=== PATIENT | female | born 1930 | race Caucasian/White ===

== ENCOUNTER 2016-12-12 13:58 | Observation (INO) | payer MEDICARE ==
[2016-12-12 14:29] LABS: Hematocrit 32 % (35-47); Hemoglobin 10.4 g/dl (12.0-16.0); Mean Corpuscular HGB Conc 32 g/dl (31-36); Mean Corpuscular Hemoglobin 30 pg (27-31); Mean Corpuscular Volume 93 fL (80-97); Mean Platelet Volume 8 um3 (7.4-10.4); Red Blood Count 3.44 10^6/ul (4.0-5.4); Red Cell Distribution Width 14 % (10.5-15); White Blood Count 8.2 10^3/ul (3.5-10.8)
[2016-12-12 14:44] LABS: Albumin 3.6 g/dL (3.2-5.2); BUN/Creatinine Ratio 20.6 (8-20); Calcium 10.3 mg/dL (8.6-10.3); EGFR African American 51.7 (>60); EGFR Non-African American 40.2 (>60); Globulin 3.2 g/dL (2-4); Potassium 4.1 mmol/L (3.5-5.0); Total Bilirubin 0.3 mg/dL (0.2-1.0); Total Protein 6.8 g/dL (6.4-8.9)
[2016-12-12 14:46] LABS: Troponin I 0.01 ng/mL (<0.04)
--- NOTE | 2016-12-12 15:04 | RAD ---
INDICATION: Weakness. COMPARISON: October 26, 2013 TECHNIQUE: Noncontrast axial source images were acquired from the skull base to the vertex. FINDINGS: Ventricles/sulci: There is mild cortical atrophy. Brain parenchyma: There are no acute parenchymal findings. There is encephalomalacia in the left frontal lobe at the operative site appearing unchanged. There is chronic marked thoracic ischemic change. Intracranial hemorrhage:None. Extra-axial spaces: There are no abnormal extra axial fluid collections or evidence of extra-axial mass. Calvarium: Left frontal craniotomy defect. Scalp: There is no evidence of scalp or extracalvarial soft tissue abnormality. Paranasal sinuses/mastoid: The paranasal sinuses and mastoid air cells are clear. Other: None. IMPRESSION: LEFT FRONTAL CRANIOTOMY WITH ADJACENT LEFT FRONTAL ENCEPHALOMALACIA. UNDERLYING CHRONIC MICROVASCULAR ISCHEMIC CHANGE. NO ACUTE FINDINGS.
[2016-12-12] MEDS ORDERED: Iodixanol* (CONTRAST) 320 MG/ML 100 ML SDV IV ONE (15:26)
--- NOTE | 2016-12-12 15:35 | ED ---
Ryan Winter Adam, scribed for Yash Bhagat MD on 12/12/16 at 1414 . Neurological HPI - HPI Summary HPI Summary: Pt is an 86 year old female presenting with slurred speech and right side weakness. She was sitting and watching TV at 10:00 this morning when she suddenly became unable to pronounce words. Her family states that her speech was coming out slurred and garbled. They also report a period of several seconds where she appeared to be conscious but was unresponsive. They also noticed right-sided facial droop and right-sided weakness. These symptoms lasted at least 3 hours and are resolved now. Pt currently has no complaints. PMHx of HTN, HLD, brain tumor, and possible CVA/TIA in 2013. Former tobacco user. - History of Current Complaint Chief Complaint: EDWeakness Stated Complaint: POSSIBLE TIA Hx Obtained From: Patient Onset/Duration: Sudden Onset, Started hours ago, Resolved Timing: Constant Onset Severity: Moderate Current Severity: None Neurological Deficit Location: Facial, RUE, RLE Pain Intensity: 0 Character: Motor Weakness, Impaired Speech, Responsiveness Aggravating: Unknown Alleviating: Spontanious Resolution Associated Signs and Symptoms: Positive: Weakness, Impaired Speech - Allergy/Home Medications Allergies/Adverse Reactions: Allergies Allergy/AdvReac Type Severity Reaction Status Date / Time Penicillins Allergy Intermediate Hives Verified 06/08/15 13:35 Sulfa Antibiotics Allergy Intermediate Hives Verified 06/08/15 13:35 Carbamazepine [From Tegretol] Allergy Unknown Verified 06/08/15 13:35 Reaction Details Phenytoin [From Dilantin] Allergy Unknown Verified 06/08/15 13:35 Reaction Details Tramadol [From Ultram] Allergy Unknown Verified 06/08/15 13:35 Reaction Details Home Medications: Home Medications Acetaminophen TAB* [Tylenol TAB*] 650 mg PO Q4H PRN 12/12/16 [History Confirmed 12/12/16] Aluminum & Magnesium Hydroxide [Mag-Al] 15 ml PO Q4HR PRN 12/12/16 [History Confirmed 12/12/16] Bismuth Subsalicylate* [Peptic Relief*] 15 ml PO Q4HR PRN 12/12/16 [History Confirmed 12/12/16] Ferrous Sulfate TAB* 325 mg PO BID WITH MEALS 12/12/16 [History Confirmed ] Ketoconazole 2 % CREAM (NF) [Nizoral 2% CREAM (NF)] 1 applic TOPICAL BID PRN 10/18 [History Confirmed 12/12/16] Levetiracetam 250 mg PO BID 12/12/16 [History Confirmed 12/12/16] LoraTADine TAB(NF) [Claritin TAB(NF)] 10 mg PO DAILY PRN 12/12/16 [History Confirmed 12/12/16] Magnesium Hydroxide LIQ* [Milk of Magnesia LIQ*] 30 ml PO DAILY PRN 12/12/16 [ History Confirmed 12/12/16] Polyvinyl Alcohol-Povidone (Op [Refresh] 1 elvin BOTH EYES DAILY 12/12/16 [ History Confirmed 12/12/16] Simvastatin TAB(NF) [Zocor(NF)] 20 mg PO BEDTIME 12/12/16 [History Confirmed 10/18] Sucralfate TAB* [Carafate*] 1 gm PO BID 12/12/16 [History Confirmed 12/12/16] Venlafaxine EXT RELEASE CAP* [Effexor Xr CAP*] 37.5 mg PO DAILY 12/12/16 [ History Confirmed 12/12/16] guaiFENesin LIQ* [Robitussin*] 10 ml PO Q4H PRN 12/12/16 [History Confirmed 10/18] PMH/Surg Hx/FS Hx/Imm Hx Endocrine/Hematology History: Reports: Hx Anticoagulant Therapy - ecotrin 324mg daily, Hx Thyroid Disease - hyper Denies: Hx Diabetes Cardiovascular History: Reports: Hx Aneurysm - aortic aneurysm, Hx Hypercholesterolemia, Hx Hypertension, Other Cardiovascular Problems/Disorders - OCCLUSIVE CAROTID Denies: Hx Pacemaker/ICD Respiratory History: Denies: Hx Asthma, Hx Chronic Obstructive Pulmonary Disease (COPD), Other Respiratory Problems/Disorders - denies GI History: Reports: Hx Gastroesophageal Reflux Disease, Hx Ulcer History: Denies: Hx Renal Disease Musculoskeletal History: Reports: Hx Arthritis Sensory History: Reports: Hx Contacts or Glasses Denies: Hx Hearing Aid Opthamlomology History: Reports: Hx Contacts or Glasses Neurological History: Denies: Hx Dementia, Hx Seizures Comment Only: Other Neuro Impairments/Disorders - BRAIN TUMOR Psychiatric History: Reports: Hx Anxiety, Hx Depression Denies: Hx Panic Disorder, Hx Substance Abuse - Surgical History Surgery Procedure, Year, and Place: MENINGICELE 2000 benign AND AAA 1991 ( meningioma and AAA surgeries cleared by dr brambila 02/19/13) Hx Anesthesia Reactions: No Infectious Disease History: No Infectious Disease History: Reports: Hx Shingles Denies: Hx Hepatitis, Hx Human Immunodeficiency Virus (HIV), Traveled Outside the [place] in Last 30 Days - Social History Occupation: Retired Lives: Alone Alcohol Use: Occasionally Hx Substance Use: No Substance Use Type: Reports: None Hx Tobacco Use: Yes Smoking Status (MU): Former Smoker Review of Systems Constitutional: Negative Negative: Fever Neurological: Other - Right side facial droop Positive: Weakness - Right side, Slurred Speech All Other Systems Reviewed And Are Negative: Yes Physical Exam - Summary Physical Exam Summary: VITAL SIGNS: Reviewed. GENERAL: Patient is a well developed and nourished female who is lying comfortable in the stretcher. Patient is not in any acute respiratory distress. HEAD AND FACE: No signs of trauma. No ecchymosis, hematomas or skull depressions. No sinus tenderness. EYES: PERRLA, EOMI x 2, No injected conjunctiva, no nystagmus. No photophobia. EARS: Hearing grossly intact. Ear canals and tympanic membranes are within normal limits. MOUTH: Oropharynx within normal limits. NECK: Supple, trachea is midline, no adenopathy, no JVD, no carotid bruit, no c- spine tenderness, neck with full ROM. No meningeal signs, no Kernig's or brudzinskis signs. CHEST: Symmetric, no tenderness at palpation LUNGS: Clear to auscultation bilaterally. No wheezing or crackles. CVS: Regular rate and rhythm, S1 and S2 present, no murmurs or gallops appreciated. ABDOMEN: Soft, non-tender. No signs of distention. No rebound no guarding, and no masses palpated. Bowel sounds are normal. EXTREMITIES: FROM in all major joints, no edema, no cyanosis or clubbing. NEURO: Alert and oriented x 3. No acute neurological deficits. Speech is normal and follows commands. NIH score is 0 SKIN: Dry and warm Triage Information Reviewed: Yes Vital Signs On Initial Exam: Initial Vitals Temp Pulse Resp BP Pulse Ox 98.7 F 73 14 127/66 96 12/12/16 14:06 12/12/16 14:06 12/12/16 14:06 12/12/16 14:06 12/12/16 14:06 Vital Signs Reviewed: Yes - Luke Coma Scale Coma Scale Total: 15 Diagnostics - Vital Signs Vital Signs Temp Pulse Resp BP Pulse Ox 12/12/16 14:06 98.7 F 73 14 127/66 96 - Laboratory Lab Results: Lab Results 12/12/16 12/12/16 12/12/16 Range/Units 14:12 14:12 14:12 WBC 8.2 (3.5-10.8) 10^3/ul RBC 3.44 L (4.0-5.4) 10^6/ul Hgb 10.4 L (12.0-16.0) g/dl Hct 32 L (35-47) % MCV 93 (80-97) fL MCH 30 (27-31) pg MCHC 32 (31-36) g/dl RDW 14 (10.5-15) % Plt Count 266 (150-450) 10^3/ul MPV 8 (7.4-10.4) um3 Neut % (Auto) 71.8 (38-83) % Lymph % (Auto) 14.2 L (25-47) % Ceiba % (Auto) 8.2 (1-9) % Eos % (Auto) 5.3 (0-6) % Baso % (Auto) 0.5 (0-2) % Absolute Neuts (auto) 5.9 (1.5-7.7) 10^3/ul Absolute Lymphs (auto) 1.2 (1.0-4.8) 10^3/ul Absolute Monos (auto) 0.7 (0-0.8) 10^3/ul Absolute Eos (auto) 0.4 (0-0.6) 10^3/ul Absolute Basos (auto) 0 (0-0.2) 10^3/ul Absolute Nucleated RBC 0 10^3/ul Nucleated RBC % 0 INR (Anticoag Therapy) 0.94 (0.89-1.11) Sodium 138 (133-145) mmol/L Potassium 4.1 (3.5-5.0) mmol/L Chloride 107 (101-111) mmol/L Carbon Dioxide 27 (22-32) mmol/L Anion Gap 4 (2-11) mmol/L BUN 26 H (6-24) mg/dL Creatinine 1.26 H (0.51-0.95) mg/dL Est GFR ( Amer) 51.7 (>60) Est GFR (Non-Af Amer) 40.2 (>60) BUN/Creatinine Ratio 20.6 H (8-20) Glucose 139 H (70-100) mg/dL Lactic Acid (0.5-2.0) mmol/L Calcium 10.3 (8.6-10.3) mg/dL Total Bilirubin 0.30 (0.2-1.0) mg/dL AST 26 (13-39) U/L ALT 17 (7-52) U/L Alkaline Phosphatase 101 (34-104) U/L Troponin I 0.01 (<0.04) ng/mL Total Protein 6.8 (6.4-8.9) g/dL Albumin 3.6 (3.2-5.2) g/dL Globulin 3.2 (2-4) g/dL Albumin/Globulin Ratio 1.1 (1-3) 12/12/16 Range/Units 14:12 WBC (3.5-10.8) 10^3/ul RBC (4.0-5.4) 10^6/ul Hgb (12.0-16.0) g/dl Hct (35-47) % MCV (80-97) fL MCH (27-31) pg MCHC (31-36) g/dl RDW (10.5-15) % Plt Count (150-450) 10^3/ul MPV (7.4-10.4) um3 Neut % (Auto) (38-83) % Lymph % (Auto) (25-47) % Ceiba % (Auto) (1-9) % Eos % (Auto) (0-6) % Baso % (Auto) (0-2) % Absolute Neuts (auto) (1.5-7.7) 10^3/ul Absolute Lymphs (auto) (1.0-4.8) 10^3/ul Absolute Monos (auto) (0-0.8) 10^3/ul Absolute Eos (auto) (0-0.6) 10^3/ul Absolute Basos (auto) (0-0.2) 10^3/ul Absolute Nucleated RBC 10^3/ul Nucleated RBC % INR (Anticoag Therapy) (0.89-1.11) Sodium (133-145) mmol/L Potassium (3.5-5.0) mmol/L Chloride (101-111) mmol/L Carbon Dioxide (22-32) mmol/L Anion Gap (2-11) mmol/L BUN (6-24) mg/dL Creatinine (0.51-0.95) mg/dL Est GFR ( Amer) (>60) Est GFR (Non-Af Amer) (>60) BUN/Creatinine Ratio (8-20) Glucose (70-100) mg/dL Lactic Acid 1.3 (0.5-2.0) mmol/L Calcium (8.6-10.3) mg/dL Total Bilirubin (0.2-1.0) mg/dL AST (13-39) U/L ALT (7-52) U/L Alkaline Phosphatase (34-104) U/L Troponin I (<0.04) ng/mL Total Protein (6.4-8.9) g/dL Albumin (3.2-5.2) g/dL Globulin (2-4) g/dL Albumin/Globulin Ratio (1-3) Result Diagrams: 12/12/16 14:12 12/12/16 14:12 Lab Statement: Any lab studies that have been ordered have been reviewed, and results considered in the medical decision making process. - CT BRAIN CT Interpretation Completed By: Radiologist - IMPRESSION: LEFT FRONTAL CRANIOTOMY WITH ADJACENT LEFT FRONTAL ENCEPHALOMALACIA. UNDERLYING CHRONIC MICROVASCULAR ISCHEMIC CHANGE. NO ACUTE FINDINGS. - EKG 14:14 Cardiac Rate: NL - 74 BPM EKG Rhythm: Sinus Rhythm - Normal EKG Interpretation: No acute ischemia. No ST elevations. - Additional Comments Diagnostic Additional Comments: Troponin I - 0.01 Course/Dx - Course Assessment/Plan: Pt is an 86 year old female presenting with slurred speech and right side weakness. She was sitting and watching TV at 10:00 this morning when she suddenly became unable to pronounce words. Her family states that her speech was coming out slurred and garbled. They also report a period of several seconds where she appeared to be conscious but was unresponsive. They also noticed right-sided facial droop and right-sided weakness. These symptoms lasted at least 3 hours and are resolved now. Pt currently has no complaints. PMHx of HTN, HLD, brain tumor, and possible CVA/TIA in 2013. Labs wnl except for slight anemia. Slight increase in BUN and creatinine. Head Ct impression shows a left frontal craniotomy with encephalomalacia, chronic microvascular disease ischemic changes. I discussed the case with Dr. Leon and he recommends to order a CTA head and neck admission to the hospitalist and he will consult for the patient. I discuss my physical exam, findings and test results with Dr. Martinez from the hospitalist services and she agrees to admit patient to his services. Patient is hemodynamically stable alert and oriented x 3. - Differential Dx Differential Diagnoses Neuro: Positive: Cerebrovascular Accident, Dysrhythmia, Headache, Hemorrhage, Medication Reaction, Seizure Disorder, Transient Ischemic Attack, Vasovagal Reaction - Diagnoses Provider Diagnoses: TIA vs CVA Discharge - Discharge Plan Condition: Stable Disposition: ADMITTED TO [facility] The documentation as recorded by the Ryan little Adam accurately reflects the service I personally performed and the decisions made by me, Yash Bhagat MD.
--- NOTE | 2016-12-12 16:10 | RAD ---
Indication: Slurred speech. Hypertension. Comparison: October 26, 2013 Technique: Upright AP 1525 hours Report: Elevated lung volumes. Minimal transverse oriented linear opacity at the RIGHT midlung zone unchanged from the 2013 exam consistent with pleural parenchymal scarring or trace fluid in the RIGHT minor fissure. The lungs and pleural spaces are otherwise clear. Upper normal heart size. Unremarkable central pulmonary vasculature. Tortuous thoracic aorta without suspicious interval change accounting for mild rightward rotation. IMPRESSION: Stigmata of chronic obstructive pulmonary disease and emphysema. No acute cardiopulmonary process evident.
--- NOTE | 2016-12-12 16:16 | RAD ---
HISTORY: Right-sided weakness, slurred speech COMPARISONS: December 12, [address], MRI dated February 19, 2013 TECHNIQUE: Multiple contiguous axial CT scans were obtained of the head and neck After the administration of nonionic intravenous contrast timed to the systemic arterial phase of contrast enhancement. Coronal and sagittal multiplanar reformations are submitted for review. Multiple 3-D maximum intensity projection reconstructions are also submitted for review. FINDINGS: CTA NECK: AORTIC ARCH: There is calcific atherosclerotic disease of the aortic arch, without ostial or proximal stenosis of the cephalic great vessels. There is a normal three-vessel branching pattern. RIGHT VERTEBRAL ARTERY: The right vertebral artery is patent along its course, without stenosis. LEFT VERTEBRAL ARTERY: There is atherosclerosis of the V4 segment of the left vertebral artery, without significant stenosis. DOMINANCE: The vertebral arteries are codominant. RIGHT COMMON CAROTID ARTERY: The right common carotid artery is patent. The right carotid bifurcation occurs at C3-C4 RIGHT INTERNAL CAROTID ARTERY: There is calcified atherosclerotic disease of the right carotid bifurcation, with approximately 60% right internal carotid artery stenosis by NASCET criteria. RIGHT EXTERNAL CAROTID ARTERY: The right external carotid artery is unremarkable. LEFT COMMON CAROTID ARTERY: The left common carotid artery is patent. The left carotid bifurcation occurs at C3-C4 LEFT INTERNAL CAROTID ARTERY: There is noncalcified atheromatous disease of the left carotid bifurcation, with approximately 60% left internal carotid artery stenosis by NASCET criteria. LEFT EXTERNAL CAROTID ARTERY: The left external carotid artery is unremarkable. VENOUS CIRCULATION: The venous system is unremarkable. SALIVARY GLANDS: The parotid glands, submandibular glands, sublingual glands are normal. NASAL CAVITY/NASOPHARYNX: The nasal cavity and nasopharynx are normal. ORAL CAVITY/OROPHARYNX: The oral cavity and oropharynx are unremarkable. LARYNGEAL APPARATUS/HYPOPHARYNX: The laryngeal apparatus and hypopharynx are normal. UPPER AIRWAY/UPPER ESOPHAGUS: The visualized upper airway and esophagus are normal. LUNG APICES: The lung apices are clear. THYROID GLAND: The thyroid gland is normal. LYMPH NODES: There is no lymphadenopathy by size criteria. BONES AND SOFT TISSUES: There is a scoliotic curvature of the spine. There is osteopenia. Degenerative changes are noted CTA HEAD: INTRACRANIAL CIRCULATION: There is no aneurysm, vascular malformation, occlusion, or stenosis of the visualized intracranial circulation. The anterior communicating artery complex is clear. The posterior communicating arteries are diminutive, if present. VENOUS CIRCULATION: The venous system is unremarkable. PERFUSION: There is no obvious parenchymal perfusion deficit. HEMORRHAGE/INFARCT: There is no hemorrhage or acute infarct. MASSES/SHIFT: There is no mass or shift. EXTRA-AXIAL SPACES: There are no extra-axial fluid collections. SULCI AND VENTRICLES: There is ex vacuo dilatation of the left lateral ventricle CEREBRUM: There is stable encephalomalacia with associated gliosis of the left frontal lobe BRAINSTEM: There are no focal parenchymal abnormalities. CEREBELLUM: There are no focal parenchymal abnormalities. PARANASAL SINUSES: The paranasal sinuses are clear. ORBITS: The orbits are unremarkable. BONES AND SOFT TISSUE: There is post surgical change to the skull OTHER: There is no abnormal enhancement. IMPRESSION: 1. ATHEROSCLEROSIS. 2. APPROXIMATELY 60% BILATERAL INTERNAL CAROTID ARTERY STENOSIS BY NASCET CRITERIA. 3. NO ANEURYSM, VASCULAR MALFORMATION, OCCLUSION, OR STENOSIS OF THE VISUALIZED INTRACRANIAL CIRCULATION. 4. STABLE LEFT FRONTAL ENCEPHALOMALACIA WITH ASSOCIATED GLIOSIS. CT IS RELATIVELY INSENSITIVE FOR THE DETECTION OF ACUTE ISCHEMIA IN THE SETTING OF CHRONIC ENCEPHALOMALACIA. IF THERE IS PERSISTENT CLINICAL CONCERN FOR ACUTE INFARCT, MRI MAY BE MORE SENSITIVE. CPT II Codes: 3100F
[2016-12-12] MEDS ORDERED: Atorvastatin* 80 MG TAB PO ONE (16:27)
[2016-12-12] MEDS ORDERED: Cetirizine* 10 MG TAB PO PRN (16:28)
[2016-12-12] MEDS ORDERED: Acetaminophen TAB* 325 MG PO PRN (16:28)
[2016-12-12] MEDS ORDERED: Docusate CAP* 100 MG PO PRN (16:28)
[2016-12-12] MEDS: Aspirin TAB* 325 MG PO SCH (17:19)
[2016-12-12] MEDS: Ferrous Sulfate TAB* 325 MG PO SCH (17:20)
[2016-12-12] MEDS: Omeprazole CAP* 20 MG PO SCH (17:33)
[2016-12-12 17:59] LABS: Urine Bilirubin Negative (Negative); Urine Glucose Negative (Negative); Urine Nitrite Negative (Negative)
[2016-12-12] MEDS: NS 0.9% 1000 ML* 1,000 ML IV SCH (19:25)
--- NOTE | 2016-12-12 20:50 | HP ---
HISTORY AND PHYSICAL: DATE OF ADMISSION: 12/12/16 PRIMARY CARE PHYSICIAN: Dr. Hanks. ATTENDING PHYSICIAN: Yuan Martinez MD *(dictation provided by Kylie Guevara NP ). CHIEF COMPLAINT: Aphasia and right-sided weakness. HISTORY OF PRESENT ILLNESS: Ms. Langston is an 86-year-old female with a past medical history of meningocele with resection in 2000, upper GI bleed in 2012, left carotid endarterectomy, and TIA in 2012, who presented to the hospital today with concern for garbled speech and right-sided weakness. Per the report , Ms. Langston has actually been doing quite well since we last saw her in 2012. She was initially discharged from our hospital, after being treated for upper GI bleed and acute kidney injury, to [facility] and went on [facility] where she lived for 3 years. Family reports that due to difficulty with finances, they decided to return the patient to home for independent living. She has been home for 2 weeks. Since being home, it was felt that she has lost some strength and become deconditioned. She has had a couple of episodes where she almost fell or had difficulty getting out of a chair. Today, the patient's daughter was with her when she noted that the patient had sudden onset of garbled speech and she called her son who is an EMT for help and her son noted that the patient seemed to have a right-sided facial droop and some right- sided arm weakness. EMS was called, garbled speech and right-sided weakness that was mild was confirmed, and the patient was brought into the emergency room for evaluation. In the emergency room, Ms. Langston had some anemia that was actually better than her baseline with hemoglobin of 10.4. Her BUN and creatinine are very mildly elevated at [address] of the brain showed no acute abnormality, only chronic evidence of craniotomy in the past. Head CTA showed no aneurysm and no significant atherosclerosis by NASCET criteria. Chest x-ray shows no acute disease process. While in the emergency room, Ms. Langston's right-sided weakness and aphasia had resolved. She is now able to make her needs known clearly. Based on Ms. Langston's presentation with concern for aphasia and right-sided weakness now resolved and TIA, Hospital Medicine was called regarding admission. PAST MEDICAL HISTORY: 1. Meningocele in 2000, status post removal and craniotomy. 2. Upper GI bleed with Dieulafoy's lesion. 3. Repeat endoscopy in 2014, no evidence of further bleeding. 4. Iron deficiency anemia. 5. Depression. 6. History of left carotid endarterectomy. 7. History of TIA in 2012. 8. Seizure disorder. 9. Thoracic aortic aneurysm. 10. Osteoarthritis. ALLERGIES: PENICILLIN, SULFA, CARBAMAZEPINE, PHENYTOIN and TRAMADOL. FAMILY HISTORY: Reviewed and noncontributory. SOCIAL HISTORY: No report of alcohol, tobacco, or drug use. The patient lives alone at this time but has got support from her family. The patient's daughter and son are healthcare proxy. REVIEW OF SYSTEMS: A 14-point review of systems was completed on Ms. Langston and all those not mentioned above are negative. PHYSICAL EXAMINATION GENERAL: Ms. Langston is lying in the bed. She is in no acute distress. She is calm and cooperative with my examination. VITAL SIGNS: Temperature 98.7, pulse rate 73, respiratory rate 14, O2 saturation 96% on room air, blood pressure 127/66. LUNGS: Clear to auscultation bilaterally with no accessory muscle use and good aeration. HEART: S1, S2. No murmur, rub, or gallop and regular. ABDOMEN: Soft, nontender with bowel sounds positive x4. EXTREMITIES: No cyanosis or edema. SKIN: Intact. NEUROLOGIC: She is alert and oriented x3. She speaks clearly. Tone of her speech does seem somewhat off, but it seemed more attributable to her very dry mouth and loose dentures than any speech deficit. She has no weakness or focal abnormality. Good strength bilateral, right and upper. She does have significant arthritis in the right hand. Left lower extremity, she has difficulty lifting it off the bed, which is a chronic issue. LABORATORY DATA: Sodium 138, potassium 4.1, chloride 107, serum bicarbonate 27 , BUN 26, creatinine 1.26, glucose 139. WBC 8.2, hemoglobin 10.4, hematocrit 32 , platelet count 266. INR 0.94. DIAGNOSTIC DATA: Head CT is read as follows: "Left frontal craniotomy with adjacent left frontal encephalomalacia. Chronic microvascular ischemic change and no acute findings." Head CTA: "Atherosclerosis, approximately 60% bilateral internal carotid artery stenosis by NASCET criteria. No aneurysm, vascular malformation, occlusion or stenosis with visualized intracranial circulation, stable left frontal encephalomalacia with associated gliosis." Chest x-ray shows no acute process. ASSESSMENT AND PLAN: Ms. Langston is an 86-year-old female with past medical history of meningocele status post resection, upper GI bleed demonstrating resolution on most recent endoscopy from 2014, transient ischemic attack in 2012 , left carotid endarterectomy who presents to the hospital with concern for aphasia and right- sided weakness which is now resolved. Our plans are for observation in the hospital for the followin. Transient ischemic attack. The patient had symptoms that is clearly indicative of stroke and they have now resolved. There is a possibility that this could be a seizure type activity but seems it is likely based on her symptoms. Neurology has been consulted. The patient will have an MRI of the brain. The patient has been administered aspirin and atorvastatin. Lipid profile and hemoglobin A1c are pending. In terms of treatment going forward, the patient would benefit from aspirin but she has had significant anemia related to GI bleed. I do note that her last upper endoscopy was with Dr. Rushing in 2014 and that report showed no evidence of further bleeding or gastritis. I have requested a progress note from Dr. Vences's office but was unable to reach Dr. Rushing's office for any further details and input on whether or not aspirin would be appropriate for this patient with the history of now what appears to be a TIA x2. We will need to continue to follow up with this tomorrow when their office is open. 2. Acute kidney injury. The patient's BUN and creatinine are mildly elevated for baseline. I will provide intravenous fluids and recheck her labs tomorrow. 3. History of GI bleed. The patient will continue on her sucralfate and omeprazole. 4. History of seizure disorder. Continue Keppra. 5. DVT prophylaxis with heparin subcu. 6. Disposition to medical floor. The patient is DNR. TIME SPENT: Approximately 60 minutes were spent on the admission of this patient; more than half of the time was spent with her at the bedside reviewing the events leading up to this hospitalization, performing the physical examination, reviewing my plan of care. KYLIE GUEVARA NP CC: Dr. Hanks* [id number]/[facility] #: [id number] MTDD
[2016-12-12] MEDS ORDERED: Atorvastatin* 10 MG TAB PO SCH (21:00)
--- NOTE | 2016-12-12 21:05 | RAD ---
Indication: Aphasia, right-sided weakness Image sequences: Sagittal and axial T1, axial T2, FLAIR, diffusion and susceptibility weighted images of the brain were obtained. Ventricular structures are midline. No midline shift is noted. Ex vacuo dilatation of the left lateral ventricle is noted. This is likely due to left frontal lobe encephalomalacia from prior infarct or surgery. Additional postoperative changes are noted. Periventricular signal abnormality consistent with chronic ischemic white matter changes noted. No evidence of restriction of diffusion is noted. Periventricular signal abnormalities consistent with chronic ischemic White matter change is noted. When compared to previous exam of February 19, 2013 no significant change is noted. Area of susceptibility artifact in the left parietal lobe likely due to old hemorrhage was not present previously. IMPRESSION: LEFT FRONTAL ENCEPHALOMALACIA UNCHANGED FROM FEBRUARY 19, 2013. NO RESTRICTION OF DIFFUSION IS NOTED. SUSCEPTIBILITY ARTIFACT IS NOTED IN THE LEFT PARIETAL LOBE WHICH WAS NOT PRESENT ON PREVIOUS EXAM.
[2016-12-12] MEDS: Sucralfate TAB* 1 GM PO SCH (21:08)
[2016-12-12] MEDS: levETIRAcetam TAB* 500 MG PO SCH (21:08)
[2016-12-12] MEDS: Heparin VIAL(*) 5000 UNITS/ML VIAL (FIVE THOUSAND) SUBCUT SCH (21:11)
[2016-12-13 05:22] LABS: BUN/Creatinine Ratio 19.5 (8-20); Calcium 9.5 mg/dL (8.6-10.3); EGFR African American 58.6 (>60); EGFR Non-African American 45.5 (>60); HDL Cholesterol 35.5 mg/dL; Potassium 3.9 mmol/L (3.5-5.0)
[2016-12-13] MEDS ORDERED: diPHENhydraMINE PO* 50 MG PO PRN (05:27)
[2016-12-13] MEDS: Heparin VIAL(*) 5000 UNITS/ML VIAL (FIVE THOUSAND) SUBCUT SCH ×2 (05:47→13:46)
[2016-12-13] MEDS: NS 0.9% 1000 ML* 1,000 ML IV SCH ×2 (06:48→16:54)
[2016-12-13] MEDS ORDERED: Ascorbic Acid TAB* 500 MG PO SCH (09:00)
[2016-12-13] MEDS: levETIRAcetam TAB* 500 MG PO SCH (09:00)
[2016-12-13] MEDS ORDERED: Venlafaxine EXT RELEASE CAP* 37.5 MG PO SCH (09:00)
[2016-12-13] MEDS: Aspirin TAB* 325 MG PO SCH (09:02)
[2016-12-13] MEDS: Sucralfate TAB* 1 GM PO SCH (09:03)
[2016-12-13] MEDS: Ferrous Sulfate TAB* 325 MG PO SCH ×2 (09:03→16:08)
[2016-12-13] MEDS: Omeprazole CAP* 20 MG PO SCH ×2 (09:04→16:08)
[2016-12-13 16:04] VITALS: BP 96/62
--- NOTE | 2016-12-13 16:19 | CONS ---
CONSULTATION REPORT: DATE OF CONSULT / DICTATION: 12/13/16 PATIENT OF: Dr. Dover, Dr. Mederos in [place], and Dr. Hanks. HISTORY OF PRESENT ILLNESS: This is an 86-year-old right-handed woman whom I am asked to evaluate for an episode of aphasia lasting several minutes with some right facial droop and right arm weakness as well and she was brought to the emergency room. She cleared rapidly and feels that she is back to her baseline. Of note, she had a left carotid endarterectomy after a TIA in 2012 with similar symptoms and she has had a significant upper GI bleed and was not maintained on any antiplatelet agent for that. PAST MEDICAL HISTORY: She has also had a thoracic aortic aneurysm, upper GI bleed with Dieulafoy's lesion with repeat endoscopy in 2014 without evidence of further bleeding. She does have a history of iron deficiency anemia, depression , she has had a seizure disorder, she is status post myelomeningocele repair. She has a history in her chart of atrial fibrillation that was present in the past, back in 2012, there is a history of that, but her recent in-hospital records do not mention this. ALLERGIES: She is allergic to PENICILLIN, SULFA, CARBAMAZEPINE, DILANTIN, TRAMADOL. FAMILY HISTORY: Reviewed and noncontributory. SOCIAL HISTORY: She is a former tobacco user. She does not drink or use drugs. She lives alone at this time. REVIEW OF SYSTEMS: Negative in all 14 spheres other than in the HPI. PHYSICAL EXAM: Temperature 100.5, pulse 90, respirations 16, blood pressure 118 /68. She is alert and oriented with normal speech and comprehension. Cranial nerves II through XII were intact. Fundi were benign. Motor exam revealed normal tone and strength and [id number]. Strength was decreased, of note, in her left leg, this is chronic secondary to an old left leg skating injury due to a fall during skating. This has been unchanged for years. Reflexes were 1 with downgoing toes. Chest: Clear. Cardiovascular: Regular rate and rhythm. Abdomen: Soft with positive bowel sounds. DIAGNOSTIC STUDIES/LAB DATA: Her EKG showed that she was in normal sinus rhythm. Her MRI scan I reviewed and agreed that it shows an area of left frontal encephalomalacia, is unchanged, no acute or subacute stroke and there is some diffuse white matter disease presumably from small vessel ischemic disease. Her CTA showed 60% carotid stenosis bilaterally. Labs include white count of 8.2, hematocrit 32, platelets 266. Normal INR. LDL of 65. BMP was normal other than creatinine of 1.13. Normal glucose, hemoglobin A1c. Normal liver function tests. UA was normal. IMPRESSION AND PLAN: Yadira had an episode of aphasia with some right arm weakness, which has resolved, but is presumably was a partial left middle cerebral artery ischemic transient ischemic attack. One other concern is that this could be from her left carotid disease and I have spoken to Dr. Mederos from [place], who wants to see her tomorrow to evaluate this further. I have also spoken to Dr. Dover and recommending the antiplatelet therapy depending on what he thinks is safe given her past gastrointestinal symptoms. The other thing that is unclear to me is that the family was not aware that she had atrial fibrillation, but there is one documentation in the chart that she had atrial fibrillation back in 2012. It is conceivable that she could have paroxysmal atrial fibrillation as the basis of her transient ischemic attack and if this is the case, then the recommendation is if she tolerates would be anticoagulation. I will discuss this further with Dr. Dover and defer to him whether further evaluation needs to be done to determine whether she does have paroxysmal atrial fibrillation. Thanks for sharing her case. [id number]/[facility] #: [id number] TAM
--- NOTE | 2016-12-13 17:13 | ECHO ---
Patient: MARIANA TELLEZ [facility] Rec#: [id number] : 1930 Date: 12/13/2016 Age: 86y Height: 157.5 cm / 62.0 in Weight: 77.1 kg / 169.9 lbs Sex: F BSA: 1.8 Room#: 439 Admit Date#: 12/12/2016 Type: Inpatient Referring: Yessica Guevara NP Reading: Renee Burch MD Outboard Technician: Savanna Traylor RN RDCS CC: Titus Landis MD Transthoracic Echocardiogram Indication: TIA BP: 132/58 HR: 86 Rhythm: NSR with PACs Findings History: HTN, A. fib, HLD, AAA repair, thoracic aortic aneurysm, CVA, seizures, former smoker, brain tumor removed Technical Comments: The study is technically limited due to patient body habitus. The study is technically limited due to the patient's smoking history. The study was technically limited due to the patient's inability to lay in the left lateral decubitus position. Completed at 1515. Left Ventricle: The left ventricular chamber size is normal. Basal interventricular septum shows moderate thickening. Global left ventricular wall motion and contractility are within normal limits. The left ventricle appears hyperdynamic. The estimated ejection fraction is greater than 65%. Abnormal left ventricular diastolic filling is observed, consistent with impaired relaxation. Left Atrium: The left atrium is mildly dilated. Right Ventricle: The right ventricular cavity size is normal. The right ventricular global systolic function is normal. Right Atrium: The right atrium is not well visualized. Interatrial septum appears intact without evidence of shunting. The bubble study is negative. Aortic Valve: The aortic valve structure is not well visualized. The aortic valve leaflets are mildly thickened. Systolic excursion of the aortic valve cusps is reduced. There is a trace of aortic regurgitation. There is borderline aortic stenosis present. Mitral Valve: There is mitral annular calcification. The mitral valve leaflets are mildly thickened. There is moderate mitral regurgitation. The mitral regurgitant jet is posteriorly directed. There is no evidence of mitral stenosis. Tricuspid Valve: The tricuspid valve structure is not well visualized. There is trace tricuspid regurgitation. Unable to estimate the right ventricular systolic pressure. Pulmonic Valve: The pulmonic valve structure is not well visualized. Pericardium: There is no significant pericardial effusion. A pericardial fat pad is visualized. Aorta: There is no dilatation of the ascending aorta. There is no dilatation of the aortic arch. The aortic root is normal in size. Pulmonary Artery: The main pulmonary artery is not well visualized. Venous: The inferior vena cava appears normal in size. There is a greater than 50% respiratory change in the inferior vena cava dimension. Contrast: Normal saline was used as contrast for the bubble study. Image 1. Summary: There are changes noted when compared to the previous study done on 10/27/2013, borderline is new. Now unable to estimate PASP instead of PHTN then. Conclusions The left ventricular chamber size is normal. The left ventricle appears hyperdynamic. The estimated ejection fraction is greater than 65%. Abnormal left ventricular diastolic filling is observed, consistent with impaired relaxation. The left atrium is mildly dilated. Interatrial septum appears intact without evidence of shunting. The bubble study is negative. There is a trace of aortic regurgitation. There is borderline aortic stenosis present. There is moderate mitral regurgitation. The mitral regurgitant jet is posteriorly directed. There is trace tricuspid regurgitation. Unable to estimate the right ventricular systolic pressure. There is no significant pericardial effusion. There are changes noted when compared to the previous study done on 10/27/2013, borderline is new. Now unable to estimate PASP instead of PHTN then. Measurements Name Value Normal Range RVDdMajor (2D) 3.8 cm (2.2 - 4.4) IVSd (2D) 1 cm (0.6 - 1) LVPWd (2D) 0.8 cm (0.6 - 1) LVIDd (2D) 4.1 cm (3.6 - 5.4) LVIDs (2D) 2.9 cm - LV FS (2D) 29 % (25 - 45) Aortic Annulus 1.8 cm (1.4 - 2.6) Ao root diameter (2D) 3.2 cm (2.1 - 3.5) Ascending Ao 3.2 cm (2.1 - 3.4) Aortic arch 2.8 cm (1.8 - 3.4) LA dimension (AP) 2D 4 cm (2.3 - 3.8) LAd ISD 4CH 5 cm (2.9 - 5.3) LA ISD 4CH W 4.8 cm (2.5 - 4.5) Name Value Normal Range MV E-wave Vmax 0.74 m/sec - MV deceleration time 179 msec - MV A-wave Vmax 1.2 m/sec - MV E:A ratio 0.6 ratio - LV septal e' Vmax 0.05 m/sec - LV lateral e' Vmax 0.07 m/sec - LV E:e' septal ratio 14.8 ratio - LV E:e' lateral ratio 10.6 ratio - Name Value Normal Range AV Vmax 1.9 m/sec - AV VTI 38.3 cm - AV peak gradient 14 mmHg - AV mean gradient 9 mmHg - LVOT diameter 1.8 cm - LVOT Vmax 1.4 m/sec - LVOT VTI 25.2 cm - MARINA (continuity Vmax) 1.9 cm2 - MARINA (continuity VTI) 1.7 cm2 - NANCY Vmax 0.5 m/sec - Name Value Normal Range IVC diameter 1.2 cm - Name Value Normal Range PV Vmax 0.88 m/sec -
--- NOTE | 2016-12-14 04:48 | DS ---
DISCHARGE SUMMARY: DATE OF ADMISSION: 12/12/16 DATE OF DISCHARGE: 12/13/16 PRIMARY CARE PROVIDER: Dr. Hanks PRIMARY DIAGNOSIS: Transient ischemic attack. SECONDARY DIAGNOSES: Include: 1. History of upper GI bleed with Dieulafoy's lesion. 2. Iron deficiency anemia. 3. Depression. 4. Left carotid endarterectomy. 5. History of seizure disorder. MEDICATIONS AT DISCHARGE: Unchanged from the admission except for the addition of aspirin 81 mg daily. Include: 1. Refresh eye drops 1 drop both eyes daily. 2. Zocor 20 mg at bedtime. 3. Effexor XR 37.5 mg daily. 4. Prilosec 20 mg twice daily. 5. Docusate 100 mg daily as needed for constipation. 6. Levetiracetam 250 mg twice daily. 7. Vitamin C 250 mg daily. 8. Carafate 1 g twice daily. 9. Magnesium oxide liquid 30 mL daily as needed for constipation. 10. Tylenol 650 mg every 4 hours as needed for pain or fever. 11. Peptic Relief 15 mL every 4 hours as needed for GI distress. 12. Loratadine 10 mg daily as needed. 13. Ketoconazole 2% cream topically twice daily as needed. 14. Ferrous sulfate 325 mg twice daily with meals and aspirin 81 mg daily as indicated above. PERTINENT IMAGING PERFORMED DURING HOSPITAL STAY: 1. Brain MRI. Impression: Left frontal encephalomalacia unchanged from January 2013. No restriction of diffusion is noted. Subsequently, artifact is noted in the left parietal lobe which was not present on previous exam. 2. Head and neck CTA. Approximately 60% bilateral internal carotid artery stenosis. No aneurysm, vascular malformation, occlusion or stenosis of the visualized intracranial circulation. Stable left frontal encephalomalacia with associated gliosis. 3. Transthoracic echocardiogram. Impression: The bubble study is negative. Left ventricular ejection fraction is 65%, abnormal left ventricular diastolic filling is observed. Left atrium is mildly dilated. The interatrial septum appears intact without evidence of shunting. Trace AR, border , moderate MR, mild regurgitant jet is posteriorly directed. Trace TR. HISTORY OF PRESENT ILLNESS AND HOSPITAL COURSE: This is a pleasant 86-year-old female with past medical history as outlined in history of present illness on the day of admission, presented with a brief episode of aphasia and right-sided weakness. She was admitted to the hospital under the diagnosis of a transient ischemic attack and was monitored on telemetry without any abnormal rhythms noted on telemetry overnight. Her symptoms adequately resolved prior to presenting to the emergency room. She was started on aspirin without adverse effect. She underwent above imaging, notable for absence of acute infarction; however, notable 60% bilateral carotid artery stenosis. Given her history of previous GI bleed, she had been maintained off antiplatelet agents. In conjunction with Neurology, it was thought best to restart her on antiplatelet agents. I did discuss her history of GI bleed with Gastroenterology who indicated in the setting of the Dieulafoy lesion, aspirin does not necessarily predispose you to recurrent bleeding and in fact, Plavix may potentiate bleeding if the lesion is present more than aspirin. For this reason, aspirin 81 mg was restarted in deference to Plavix. Dr. Leon discussed CTA findings with the patient's vascular surgeon, indicating 60% bilateral stenosis. The patient is to follow up tomorrow, the day after discharge with her vascular surgeon. Copies of the images including CTA and MRI are burned for hard copies and given to the patient prior to her discharge so that she could bring them to her primary vascular surgeon tomorrow. Follow up for further evaluation. There were no complications in the patient's hospital stay. Reasons to return to the hospital including but not limited to recurrent or worsening symptoms lightheadedness, headache, chest pain, shortness of breath, loss of consciousness, near loss of consciousness, fevers, chills, night sweats , asymmetric strength or weakness, aphasia, inability to obtain or tolerate medications were discussed with the patient and her daughter. They acknowledged understanding. TIME SPENT: Greater than 45 minutes were spent on discharge of the patient, greater than half was spent [id number] with the patient. CC: Dr. Hanks * [id number]/[facility] #: [id number] TAM
== END 2016-12-13 18:06 | disposition home or self-care (01) ==
LOC: ED 13:58 → MEDTELE 16:20
PROVIDERS: ADMIT Internal Medicine; ATTEND Internal Medicine
DX: G45.9 Transient cerebral ischemic attack, unspecified (principal); N17.9 Acute kidney failure, unspecified; I65.23 Occlusion and stenosis of bilateral carotid arteries; D50.9 Iron deficiency anemia, unspecified; F32.9 Major depressive disorder, single episode, unspecified; G40.909 Epilepsy, unspecified, not intractable, without status epilepticus; Z86.73 Personal history of transient ischemic attack (TIA), and cerebral infarction without residual deficits; Z79.899 Other long term (current) drug therapy; Z88.0 Allergy status to penicillin; Z88.2 Allergy status to sulfonamides; Z88.8 Allergy status to other drugs, medicaments and biological substances; Z87.891 Personal history of nicotine dependence; G93.89 Other specified disorders of brain; R47.01 Aphasia; I70.0 Atherosclerosis of aorta
CPT/HCPCS: 36415; 70450; 70496; 70498; 70551; 71010; 80048; 80053; 80061; 81003; 83036; 83605; 84484; 85025; 85610; 93005; 93306; 96360; 96361; 96372; 99284; A9270-GY; G0378; G8996-GN-CH; G8997-GN-CH; G8998-GN-CH; G9168-GN-CK; G9169-GN-CJ; J1644; Q9967

== ENCOUNTER 2017-01-25 20:08 | Emergency (ER) | payer MEDICARE ==
[2017-01-25 20:23] VITALS: BP 107/71
[2017-01-25 22:32] LABS: Hematocrit 29 % (35-47); Hemoglobin 9.4 g/dl (12.0-16.0); Mean Corpuscular HGB Conc 32 g/dl (31-36); Mean Corpuscular Hemoglobin 31 pg (27-31); Mean Corpuscular Volume 96 fL (80-97); Mean Platelet Volume 8 um3 (7.4-10.4); Red Blood Count 3.03 10^6/ul (4.0-5.4); Red Cell Distribution Width 17 % (10.5-15); White Blood Count 12.3 10^3/ul (3.5-10.8)
--- NOTE | 2017-01-25 22:51 | RAD ---
Indication: Left groin and leg edema. Duplex Doppler sonography of the deep venous system of the left lower extremity deep venous system was performed. Bilaterally the common femoral veins appear patent and compressible. Left proximal greater saphenous vein, proximal deep femoral vein, femoral vein, popliteal vein, posterior tibial veins and peroneal veins appear patent and compressible. IMPRESSION: NO EVIDENCE OF DEEP VENOUS THROMBOSIS IS IDENTIFIED.
[2017-01-25 22:52] LABS: Albumin 3.6 g/dL (3.2-5.2); BUN/Creatinine Ratio 18.1 (8-20); EGFR African American 51.2 (>60); EGFR Non-African American 39.8 (>60); Globulin 2.9 g/dL (2-4); Potassium 4.4 mmol/L (3.5-5.0); Total Bilirubin 0.7 mg/dL (0.2-1.0); Total Protein 6.5 g/dL (6.4-8.9)
--- NOTE | 2017-01-26 00:59 | ED ---
[facility] [place], scribed for Bari Grajeda on 01/25/17 at 2306 . Lower Extremity - HPI Summary HPI Summary: Patient is a 86 y/o female who presents to the ED with ecchymosis on her left lower extremity. She denies abd pain, CP, or fever. Pt friend reports that pt had a failed carotid stent placement one week ago (this was done at [place] by Dr. Burgos). She reports pts blood pressure dropped and she lost a lot of blood after the surgery. She was given 4 units of blood and sent home with a visiting nurse. Pt is a former smoker. - History of Current Complaint Chief Complaint: EDExtremityLower Stated Complaint: LEFT LEG POSSIBLE DVT Time Seen by Provider: 01/25/17 21:36 Hx Obtained From: Patient, Other: - Friend. Pain Intensity: 0 Pain Scale Used: 0-10 Numeric Timing: Constant Associated Signs And Symptoms: Positive: Bruising, Other - No CP.. Negative: Fever, Abdominal Pain Aggravating Factor(s): Nothing Alleviating Factor(s): Nothing - Allergies/Home Medications Allergies/Adverse Reactions: Allergies Allergy/AdvReac Type Severity Reaction Status Date / Time Penicillins Allergy Intermediate Hives Verified 06/08/15 13:35 Sulfa Antibiotics Allergy Intermediate Hives Verified 06/08/15 13:35 Carbamazepine [From Tegretol] Allergy Unknown Verified 06/08/15 13:35 Reaction Details Iodinated Diagnostic Agents Allergy Rash And Verified 01/25/17 20:24 Itching Phenytoin [From Dilantin] Allergy Unknown Verified 06/08/15 13:35 Reaction Details Tramadol [From Ultram] Allergy Unknown Verified 06/08/15 13:35 Reaction Details nickel Allergy Unknown Uncoded 01/25/17 20:24 Reaction Details PMH/Surg Hx/FS Hx/Imm Hx Endocrine/Hematology History: Reports: Hx Blood Disorders - Iron Deficient Anemia, Hx Thyroid Disease - hyper Denies: Hx Anticoagulant Therapy, Hx Diabetes Cardiovascular History: Reports: Hx Aneurysm - aortic aneurysm, Hx Hypercholesterolemia, Hx Hypertension, Other Cardiovascular Problems/Disorders - OCCLUSIVE CAROTID Denies: Hx Pacemaker/ICD Respiratory History: Denies: Hx Asthma, Hx Chronic Obstructive Pulmonary Disease (COPD), Other Respiratory Problems/Disorders - denies GI History: Reports: Hx Gastroesophageal Reflux Disease, Hx Ulcer History: Denies: Hx Renal Disease Musculoskeletal History: Reports: Hx Arthritis Sensory History: Reports: Hx Contacts or Glasses Denies: Hx Hearing Aid Opthamlomology History: Reports: Hx Contacts or Glasses Neurological History: Reports: Other Neuro Impairments/Disorders - BRAIN TUMOR Denies: Hx Dementia, Hx Seizures Psychiatric History: Reports: Hx Anxiety, Hx Depression Denies: Hx Panic Disorder, Hx Substance Abuse - Cancer History Cancer Type, Location and Year: meningioma - Surgical History Surgery Procedure, Year, and Place: [place] 2000 benign AND AAA 1991 ( meningioma and AAA surgeries cleared by dr brambila 02/19/13) Carotid endarterectomy Hx Anesthesia Reactions: No Infectious Disease History: No Infectious Disease History: Reports: Hx Shingles Denies: Hx Hepatitis, Hx Human Immunodeficiency Virus (HIV), Traveled Outside the [place] in Last 30 Days - Family History Known Family History: Positive: Diabetes - Son. Negative: Cardiac Disease - Social History Alcohol Use: Occasionally Hx Substance Use: No Substance Use Type: Reports: None Hx Tobacco Use: Yes Smoking Status (MU): Former Smoker Review of Systems Negative: Fever Negative: Chest Pain Negative: Abdominal Pain Positive: Bruising - Ecchymosis on left arm as well. All Other Systems Reviewed And Are Negative: Yes Physical Exam Triage Information Reviewed: Yes Vital Signs On Initial Exam: Initial Vitals Temp Pulse Resp BP Pulse Ox 98.8 F 103 16 107/71 99 01/25/17 20:15 01/25/17 20:15 01/25/17 20:15 01/25/17 20:15 01/25/17 20:15 Vital Signs Reviewed: Yes Appearance: Positive: Well-Appearing, No Pain Distress Skin: Positive: Warm, Skin Color Reflects Adequate Perfusion, Dry Head/Face: Positive: Normal Head/Face Inspection Eyes: Positive: EOMI, RENU Neck: Positive: Supple, Nontender Respiratory/Lung Sounds: Positive: Clear to Auscultation, Breath Sounds Present Cardiovascular: Positive: RRR, Pulses are Symmetrical in both Upper and Lower Extremities Abdomen Description: Positive: Nontender, Soft Musculoskeletal: Positive: Normal, Other - Ecchymosis left thigh. No restriction of movement of left leg. Neurological: Positive: Normal, Sensory/Motor Intact, Alert, Oriented to Person Place, Time, Other - No neurological deficit. Diagnostics - Vital Signs Vital Signs Temp Pulse Resp BP Pulse Ox 01/25/17 20:15 98.8 F 103 16 107/71 99 - Laboratory Result Diagrams: 01/25/17 22:21 01/25/17 22:21 Lab Statement: Any lab studies that have been ordered have been reviewed, and results considered in the medical decision making process. Re-Evaluation - Re-Evaluation First Eval Re-Evaluation Time: 22:59 Comment: Discussed plan with pt. She is agreeable. Lower Extremity Course/Dx - Diagnoses Provider Diagnoses: Traumatic ecchymosis of left lower leg Discharge - Discharge Plan Condition: Stable Disposition: HOME Patient Education Materials: Ecchymosis (ED) Referrals: Titus Landis MD [Primary Care Provider] - Additional Instructions: Follow up with PCP in 3 days. The documentation as recorded by the [facility] [place] accurately reflects the service I personally performed and the decisions made by Taras cobos Emmanuel.
== END 2017-01-25 23:30 | disposition home or self-care (01) ==
LOC: ED 20:08
DX: R58 Hemorrhage, not elsewhere classified (principal); Z98.890 Other specified postprocedural states; Z88.0 Allergy status to penicillin; R60.0 Localized edema
CPT/HCPCS: 36415; 80053; 85025; 99282